=== PATIENT | male | born 1975 | race Two or more races ===

== ENCOUNTER 2020-07-13 11:45 | Emergency (ER) | payer MEDICAID, OTHER ==
[~2020-07-13] VITALS: Ht 167.6 cm; Wt 74.8 kg
[2020-07-13 13:02] VITALS: BP 124/83
[2020-07-13 13:03] LABS: Urine Bacteria NONE SEEN /hpf (None Seen); Urine Blood 2+ /uL (Negative); Urine Budding Yeast FEW /hpf (None Seen); Urine Specific Gravity 1.042 (1.001-1.035); Urine WBC 193 /hpf (0 - 3)
[2020-07-13] MEDS ORDERED: LIDOCAINE 1% HCL (LOCAL ANESTH.) INJ 20ML MDV ONE (13:15)
[2020-07-13] MEDS ORDERED: cefTRIAXone SOD 1,000 MG VL IM ONE (13:15)
== END 2020-07-13 13:35 | disposition home or self-care (01) ==
LOC: ER 11:45
DX: N39.0 Urinary tract infection, site not specified (principal)
CPT/HCPCS: 81001; 96372; 99283; J0696; J2001